=== PATIENT | male | born 1970 | race Caucasian/White ===

== ENCOUNTER → 2017-12-28 13:35 | Outpatient (CLI) | payer OTHER, SELFPAY ==
--- NOTE | 2017-12-28 13:40 | ECHOD_ITS ---
Reason For Study: Hyperlipidemia Procedure This was a 2D Doppler, Color Flow transthoracic echocardiogram. The exam was of fair technical quality due to diminished acoustic windows. Exam performed in department. Left Ventricle Normal LV size. Left ventricular systolic function is normal. The estimated ejection fraction is 60 %. No evidence for diastolic dysfunction. No regional wall motion abnormalities noted. Right Ventricle Normal RV size. Normal systolic function. Atria Normal left atrium. Normal right atrium. No doppler evidence for ASD. Mitral Valve Mild diffuse mitral valve thickening. An annuloplasty ring is noted in the mitral position. Trivial transvalvular insufficiency of the mitral valve. Tricuspid Valve Normal tricuspid valve. Trivial tricuspid valve insufficiency. Right ventricular systolic pressure estimated to be 24 mmHg. Aortic Valve Trisinus/trileaflet aortic valve. Normal aortic valve. Pulmonic Valve The pulmonic valve is not well visualized. Trivial pulmonic valve insufficiency. Great Vessels Normal sized aortic root. Pericardium/Pleural No pericardial effusion. MMode/2D Measurements & Calculations LVIDd: 4.8 cm IVSd: 1.0 cm Ao root diam: 3.3 cm LVIDs: 3.5 cm LVPWd: 1.2 cm LA dimension: 4.7 cm RVDd: 2.9 cm FS: 26.6 % LAV(MOD-bp): 78.7 ml LA A4 area: 24.4 cm2 LAV(MOD-bp) Indexed: 36.2 ml/m2 LAV(MOD-sp2): 77.8 ml LAV(MOD-sp4): 77.8 ml Time Measurements MV dec time: 0.39 sec Doppler Measurements & Calculations MV E max figueroa: 134.3 cm/sec Lat Peak E' Figueroa: 8.4 cm/sec Med Peak E' Figueroa: 9.6 cm/sec MV A max figueroa: 128.7 cm/sec E/E' lat: 16.0 E/E' med: 14.0 MV E/A: 1.0 MV V2 max: 143.2 cm/sec MV P1/2t max figueroa: 136.9 cm/sec Ao V2 max: 104.0 cm/sec MV max P.2 mmHg MV P1/2t: 107.0 msec Ao max P.3 mmHg MV V2 mean: 99.2 cm/sec MV dec slope: 374.5 cm/sec2 Ao V2 mean: 69.4 cm/sec MV mean P.2 mmHg MVA(P1/2t): 2.1 cm2 Ao mean P.2 mmHg MV V2 VTI: 41.7 cm Ao V2 VTI: 21.9 cm LV V1 max: 93.4 cm/sec PA V2 max: 92.9 cm/sec TR max figueroa: 228.2 cm/sec LV V1 max P.5 mmHg TR max P.8 mmHg LV V1 mean P.7 mmHg LV V1 mean: 60.9 cm/sec LV V1 VTI: 20.8 cm Interpretation Summary Left ventricular systolic function is normal. The estimated ejection fraction is 60 %. An annuloplasty ring is noted in the mitral position. Mild diffuse mitral valve thickening. Trivial transvalvular insufficiency of the mitral valve. Trivial tricuspid valve insufficiency. Trivial pulmonic valve insufficiency. Right ventricular systolic pressure estimated to be 24 mmHg. No evidence for diastolic dysfunction. Ordering Physician: Noman Sloan Referring Physician: Osmin Cast Performed By: Ligia Caruso, KRUPA, RVT
== END ==
PROVIDERS: Family Provider Family Medicine; PCP Family Medicine; Visit Provider Internal Medicine Cardiovascular Disease
DX: I34.0 Nonrheumatic mitral (valve) insufficiency (principal); E78.5 Hyperlipidemia, unspecified
CPT/HCPCS: 93306

== ENCOUNTER → 2019-02-15 08:29 | Outpatient (CLI) | payer OTHER, SELFPAY ==
[2019-02-08 11:40] VITALS: BMI 31.4
[2019-02-15 09:29] LABS: AST(SGOT) 17 U/L (15-37); Alanine Aminotransfer ALT/SGPT 32 U/L (16-61); Alkaline Phosphatase 62 U/L (45-117); Bilirubin, Direct 0.16 mg/dL (0.00-0.30); Cholesterol 157 mg/dL (200); Globulin 3.3 g/dL (2.2-4.2); High Density Lipoprotein 37 mg/dL; Protein, Total 7.3 g/dL (6.4-8.2); Triglycerides 121 mg/dL; Very Low Density Lipoprotein 24 mg/dL (5-40)
== END ==
LOC: LAB 08:32
PROVIDERS: Family Provider Family Medicine; PCP Family Medicine; Referring Provider Internal Medicine Cardiovascular Disease; Visit Provider Internal Medicine Cardiovascular Disease
DX: E78.5 Hyperlipidemia, unspecified (principal)
CPT/HCPCS: 36415; 80061; 80076

== ENCOUNTER → 2021-01-15 15:06 | Outpatient (CLI) | payer OTHER, SELFPAY ==
[2020-08-14 09:40] VITALS: BMI 32.2
--- NOTE | 2021-01-15 15:09 | ECHOD_ITS ---
Reason For Study: MVP Procedure This was a 2D Doppler, Color Flow transthoracic echocardiogram. Exam performed in department. Left Ventricle Normal LV size. Mild concentric left ventricular hypertrophy. Left ventricular systolic function is normal. The estimated ejection fraction is 70 %. Transmitral doppler flow suggestive of impaired relaxation of left ventricle. No regional wall motion abnormalities noted. Right Ventricle Normal RV size. Normal systolic function. Atria Normal left atrium. Normal right atrium. No doppler evidence for ASD. Mitral Valve An annuloplasty ring is noted in the mitral position. Trivial transvalvular insufficiency of the mitral valve. Tricuspid Valve Normal tricuspid valve. Trivial tricuspid valve insufficiency. Unable to estimate RV systolic pressure due to insufficient tricuspid regurgitant envelope. Aortic Valve Trisinus/trileaflet aortic valve. Normal aortic valve. Pulmonic Valve The pulmonic valve is not well visualized. Trivial pulmonic valve insufficiency. Great Vessels Borderline-mildly enlarged aortic root. Pericardium/Pleural No pericardial effusion. MMode/2D Measurements & Calculations LVIDd: 3.5 cm IVSd: 1.3 cm Ao root diam: 4.0 cm LVIDs: 2.3 cm LVPWd: 1.3 cm LA dimension: 4.5 cm FS: 35.7 % LAV(MOD-bp): 71.8 ml LA A4 area: 19.3 cm2 LAV(MOD-bp) Indexed: 32.0 ml/m2 LAV(MOD-sp2): 85.5 ml LAV(MOD-sp4): 58.4 ml Time Measurements MV dec time: 0.26 sec Doppler Measurements & Calculations MV E max figueroa: 134.9 cm/sec Lat Peak E' Figueroa: 9.6 cm/sec Med Peak E' Figueroa: 9.6 cm/sec MV A max figueroa: 250.4 cm/sec E/E' lat: 14.0 E/E' med: 14.1 MV E/A: 0.54 MV V2 max: 249.4 cm/sec MV P1/2t max figueroa: 137.7 cm/sec Ao V2 max: 117.3 cm/sec MV max P.9 mmHg MV P1/2t: 86.0 msec Ao max P.5 mmHg MV V2 mean: 128.9 cm/sec MV dec slope: 468.9 cm/sec2 MV mean P.3 mmHg MVA(P1/2t): 2.6 cm2 MV V2 VTI: 46.1 cm LV V1 max: 93.4 cm/sec PA V2 max: 103.0 cm/sec LV V1 max P.5 mmHg Interpretation Summary Left ventricular systolic function is normal. The estimated ejection fraction is 70 %. Mild concentric left ventricular hypertrophy. An annuloplasty ring is noted in the mitral position. Trivial transvalvular insufficiency of the mitral valve. Trivial tricuspid valve insufficiency. Trivial pulmonic valve insufficiency. Borderline-mildly enlarged aortic root. Unable to estimate RV systolic pressure due to insufficient tricuspid regurgitant envelope. Transmitral doppler flow suggestive of impaired relaxation of left ventricle Ordering Physician: Noman Sloan Referring Physician: Noman Sloan Performed By: Brodwolf, Darek, RCS
== END ==
LOC: CVS 15:09
PROVIDERS: Referring Provider Internal Medicine Cardiovascular Disease; Visit Provider Internal Medicine Cardiovascular Disease
DX: I34.1 Nonrheumatic mitral (valve) prolapse (principal); I34.0 Nonrheumatic mitral (valve) insufficiency; E78.5 Hyperlipidemia, unspecified; Z98.890 Other specified postprocedural states
CPT/HCPCS: 93306

== ENCOUNTER → 2024-02-09 | Outpatient (CLI) | payer OTHER, SELFPAY ==
--- NOTE | 2024-02-09 13:44 | ECHOD_ITS ---
Reason For Study: HISTORY OF MV REPAIR 2013 Procedure This was a 2D Doppler, Color Flow transthoracic echocardiogram. Exam performed in department. Left Ventricle Normal LV size. Left ventricular systolic function is normal. The estimated ejection fraction is 56 %. No regional wall motion abnormalities noted. Right Ventricle Normal RV size. Normal systolic function. Atria Normal left atrium. Normal right atrium. Mitral Valve Status post mitral valve repair with annuloplasty ring. Aortic Valve Trisinus/trileaflet aortic valve. Great Vessels Mildly dilated aortic root. The pulmonary artery is normal size. Normal inferior vena cava. Pericardium/Pleural No pericardial effusion. MMode/2D Measurements & Calculations LVIDd: 4.3 cm IVSd: 1.0 cm Ao root diam: 3.9 cm LVIDs: 3.1 cm LVPWd: 1.1 cm RVDd: 3.5 cm FS: 28.5 % LAV(MOD-bp): 77.2 ml SV(MOD-sp4): 51.3 ml LVAd ap4: 33.0 cm2 LAV(MOD-bp) Indexed: 32.9 ml/m2 LVLd ap4: 9.7 cm LAV(MOD-sp2): 74.6 ml EDV(MOD-sp4): 93.8 ml LAV(MOD-sp4): 73.6 ml EDV(sp4-el): 95.2 ml LVAs ap4: 19.5 cm2 LVLs ap4: 7.8 cm ESV(MOD-sp4): 42.6 ml ESV(sp4-el): 41.3 ml EF(MOD-sp4): 54.6 % EF(sp4-el): 56.6 % SV(sp4-el): 53.9 ml LA dimension(2D): 4.2 cm LA A4 area: 21.9 cm2 TAPSE: 2.9 cm RA A4 area: 14.9 cm2 Doppler Measurements & Calculations Lat Peak E' Figueroa: 15.3 cm/sec Med Peak E' Figueroa: 10.7 cm/sec MV V2 max: 221.9 cm/sec MV max P.7 mmHg MV V2 mean: 142.0 cm/sec MV mean P.1 mmHg MV V2 VTI: 39.5 cm MV P1/2t max figueroa: 133.1 cm/sec Ao V2 max: 117.6 cm/sec LV V1 max: 98.3 cm/sec MV P1/2t: 59.3 msec Ao max P.5 mmHg LV V1 max P.9 mmHg MV dec slope: 657.3 cm/sec2 Ao V2 mean: 84.3 cm/sec LV V1 mean P.1 mmHg Ao mean P.1 mmHg LV V1 mean: 70.3 cm/sec MVA(P1/2t): 3.7 cm2 Ao V2 VTI: 19.3 cm LV V1 VTI: 17.4 cm AV (velocity ratio): 0.90 PA V2 max: 80.6 cm/sec PA V2 mean: 60.0 cm/sec ECHO/Echo Complete Interpretation Summary Normal LV size. Left ventricular systolic function is normal. Status post mitral valve repair with annuloplasty ring. The estimated ejection fraction is 56 %. Ordering Physician: Asher Ehcols Referring Physician: Zi Hopkins Performed By: Ligia Caruso, KRUPA, RVT
== END | disposition home or self-care (01) ==
PROVIDERS: PCP Family Medicine; Referring Provider Nurse Practitioner Family; Visit Provider Nurse Practitioner Family
DX: Z98.890 Other specified postprocedural states (principal)
CPT/HCPCS: 93306